=== PATIENT | female | born 2000 | race Two or more races ===

== ENCOUNTER 2021-04-05 18:28 | Observation (INO) | payer MEDICAID ==
[~2021-04-05] VITALS: Ht 162.6 cm; Wt 62.6 kg
[2021-04-05 20:14] LABS: CLARITY URINE CLEAR (CLEAR); COLOR URINE YELLOW (YELLOW); KETONES URINE NEGATIVE (NEGATIVE); LEUKOCYTE ESTERASE URINE NEGATIVE (NEGATIVE); NITRITE URINE NEGATIVE (NEGATIVE); OCCULT BLOOD URINE NEGATIVE (NEGATIVE); PH URINE 6.5 (4.5-8.0); PROTEIN URINE NEGATIVE (NEGATIVE); SPECIFIC GRAVITY URINE 1.006 (1.005-1.030); UROBILINOGEN URINE 0.2 E.U./dL (0.2-1.0)
[2021-04-05] MEDS ORDERED: PNV11TAB5 PO (20:45)
== END 2021-04-05 21:00 | disposition home or self-care (01) ==
LOC: 8 EST LDRP 18:28
PROVIDERS: ADMIT Specialist; ATTEND Specialist
DX: O26.892 Other specified pregnancy related conditions, second trimester (principal); R10.2 Pelvic and perineal pain; Z3A.22 22 weeks gestation of pregnancy
CPT/HCPCS: 59025; 81003; G0378; 99281

== ENCOUNTER 2023-01-05 16:37 | Emergency (ER) | payer MEDICAID, OTHER ==
[~2023-01-05] VITALS: Ht 162.6 cm; Wt 64.5 kg
[~2023-01-05 16:37] MED LIST: PNV11TAB5 PO
[2023-01-05 16:49] VITALS: BP 110/63
[2023-01-05] MEDS ORDERED: ACETAMINOPHEN 325MG TABLET PO PRN (17:00)
[2023-01-05 17:28] LABS: BASOPHILS % 0.2 % (0.0-2.0); EOSINOPHILS % 0.7 % (0.0-5.0); HEMATOCRIT. 33.6 % (36.0-48.0); LYMPHOCYTES % 22.5 % (20.0-50.0); MEAN CORPUSCULAR VOLUME 73.2 fL (81.0-99.0); MEAN PLATELET VOLUME 7.2 fl (7.4-10.4); MONOCYTES % 6.9 % (2.0-8.0); NEUTROPHILS % 69.7 % (40.0-76.0); PLATELET 342 x1000/uL (130-400); RED BLOOD CELL COUNT 4.59 mill/uL (4.2-5.4); RED CELL DISTRIBUTION WIDTH 15.8 % (11.6-14.6)
[2023-01-05 17:40] LABS: CHLORIDE 105 mEq/L (98-107)
[2023-01-05 18:01] LABS: B-HCG QUANTITATIVE 16548 mIU/mL (<3)
[2023-01-05 18:46] LABS: CLARITY URINE CLEAR (CLEAR); COLOR URINE YELLOW (YELLOW); KETONES URINE NEGATIVE (NEGATIVE); LEUKOCYTE ESTERASE URINE TRACE (NEGATIVE); NITRITE URINE NEGATIVE (NEGATIVE); OCCULT BLOOD URINE 3+ (NEGATIVE); PROTEIN URINE NEGATIVE (NEGATIVE); SPECIFIC GRAVITY URINE 1.021 (1.005-1.030); UROBILINOGEN URINE 0.2 E.U./dL (0.2-1.0)
== END 2023-01-05 19:56 | disposition home or self-care (01) ==
LOC: ER 16:37
DX: O03.4 Incomplete spontaneous abortion without complication (principal); Z3A.08 8 weeks gestation of pregnancy; O36.4XX0 Maternal care for intrauterine death, not applicable or unspecified
CPT/HCPCS: 36415; 76801; 80053; 81003; 81025; 84702; 85025; 86850; 86900; 99284

== ENCOUNTER 2023-08-09 09:19 | Emergency (ER) | payer MEDICAID, OTHER ==
[~2023-08-09] VITALS: Ht 162.6 cm; Wt 65.3 kg
[2023-08-09 09:26] VITALS: BP 117/75; O2SAT 99
[2023-08-09 10:50] VITALS: PULSE 82; RESP 12; TEMP 98.2
== END 2023-08-09 10:57 | disposition home or self-care (01) ==
LOC: ER 09:19
DX: R07.89 Other chest pain (principal); F41.9 Anxiety disorder, unspecified
CPT/HCPCS: 71045; 81025; 93005; 99283

== ENCOUNTER 2023-08-18 18:42 | Emergency (ER) | payer OTHER ==
[~2023-08-18] VITALS: Ht 162.6 cm; Wt 67.0 kg
[2023-08-18 18:55] VITALS: BP 106/68; PULSE 94; RESP 16; TEMP 97.9; O2SAT 99
== END 2023-08-18 23:00 | disposition left against medical advice (07) ==
LOC: ER 18:42
DX: Z53.21 Procedure and treatment not carried out due to patient leaving prior to being seen by health care provider (principal)
CPT/HCPCS: 99281

== ENCOUNTER 2023-08-26 13:49 | Emergency (ER) | payer OTHER ==
[~2023-08-26] VITALS: Ht 162.6 cm; Wt 66.7 kg
[2023-08-26 13:58] VITALS: BP 106/65; PULSE 88; RESP 16; TEMP 98.2; O2SAT 100
[2023-08-26] MEDS ORDERED: AMOX1TAB16 MT (14:28)
== END 2023-08-26 15:11 | disposition home or self-care (01) ==
LOC: ER 13:53
DX: H00.014 Hordeolum externum left upper eyelid (principal)
CPT/HCPCS: 99283

== ENCOUNTER 2023-12-11 21:55 | Emergency (ER) | payer MEDICAID, OTHER ==
[~2023-12-11] VITALS: Ht 162.6 cm; Wt 67.0 kg
[~2023-12-11 21:55] MED LIST changes: +AMOX1TAB16 MT
[2023-12-11 22:01] VITALS: O2SAT 100
[2023-12-11] MEDS: SODIUM CHLORIDE 0.9% IV ONE (22:15)
[2023-12-11 22:42] LABS: CLARITY URINE CLEAR (CLEAR); COLOR URINE YELLOW (YELLOW); GLUCOSE URINE NEGATIVE (NEGATIVE); KETONES URINE NEGATIVE (NEGATIVE); LEUKOCYTE ESTERASE URINE 1+ (NEGATIVE); NITRITE URINE NEGATIVE (NEGATIVE); OCCULT BLOOD URINE NEGATIVE (NEGATIVE); PROTEIN URINE NEGATIVE (NEGATIVE); SPECIFIC GRAVITY URINE 1.008 (1.005-1.030); UROBILINOGEN URINE 0.2 E.U./dL (0.2-1.0)
[2023-12-11 22:59] LABS: BACTERIA URINE 1+; RBC URINE 0-2 /hpf (0-2); SQUAMOUS EPITHELIAL CELL URINE 1+ /lpf (RARE/1+)
[2023-12-12 00:51] VITALS: BP 127/86; PULSE 67; RESP 20
[2023-12-12] MEDS ORDERED: CEPH250C2 MT (01:48)
[2023-12-12 02:02] VITALS: TEMP 98.2
[2023-12-12] MEDS: ACETAMINOPHEN 325MG TABLET PO ONE (02:02)
== END 2023-12-12 02:12 | disposition home or self-care (01) ==
LOC: ER 21:55
DX: N39.0 Urinary tract infection, site not specified (principal)
CPT/HCPCS: 81003; 96360; 99283; J7030; Z7610

== ENCOUNTER 2024-10-27 21:17 | Emergency (ER) | payer MEDICAID, OTHER ==
[~2024-10-27] VITALS: Ht 162.6 cm; Wt 82.0 kg
[~2024-10-27 21:17] MED LIST changes: +CEPH250C2 MT
[2024-10-27 21:21] VITALS: O2SAT 99
[2024-10-27 21:52] LABS: BASOPHILS % 0.3 % (0.0-2.0); DIFFERENTIAL COMMENT 0; EOSINOPHILS % 0.9 % (0.0-5.0); HEMOGLOBIN. 12.7 g/dL (12.0-16.0); LYMPHOCYTES % 22.6 % (20.0-50.0); MEAN CORPUSCULAR HEMOGLOBIN 26.1 pg (28.0-32.0); MEAN CORPUSCULAR HGB CONC 33.5 g/dL (31.0-37.0); MEAN CORPUSCULAR VOLUME 77.9 fL (81.0-99.0); MEAN PLATELET VOLUME 7.5 fl (7.4-10.4); NEUTROPHILS % 69.2 % (40.0-76.0); PLATELET 372 x1000/uL (130-400); RED BLOOD CELL COUNT 4.88 mill/uL (4.2-5.4); RED CELL DISTRIBUTION WIDTH 15.6 % (11.6-14.6)
[2024-10-27 22:05] LABS: CHLORIDE 104 mEq/L (98-107); POTASSIUM 4.1 mEq/L (3.5-5.1); SODIUM 140 mEq/L (136-145)
[2024-10-27 22:06] LABS: CALCIUM 9.7 mg/dL (8.7-10.4); CARBON DIOXIDE 29 mEq/L (21-32)
[2024-10-27 22:10] LABS: HCG SCREEN NEGATIVE
[2024-10-27 22:11] LABS: CREATININE 0.9 mg/dL (0.6-1.0); GLUCOSE 95 mg/dL (70-105); UREA NITROGEN BLOOD 11 mg/dL (9-23)
[2024-10-27 22:13] VITALS: BP 130/88; PULSE 98; RESP 20; TEMP 37; O2SAT 99
[2024-10-27 22:19] LABS: TROPONIN I HIGH SENSITIVITY < 4 ng/L (3.0-34)
== END 2024-10-28 01:00 | disposition home or self-care (01) ==
LOC: ER 21:17
DX: R53.1 Weakness (principal); F41.9 Anxiety disorder, unspecified
CPT/HCPCS: 36415; 71045; 80048; 84484; 84703; 85025; 93005; 99285

== ENCOUNTER 2024-12-14 23:13 | Emergency (ER) | payer MEDICAID, OTHER ==
[~2024-12-14] VITALS: Ht 167.6 cm; Wt 55.0 kg
[2024-12-14 23:21] VITALS: O2SAT 100
[2024-12-14 23:40] VITALS: TEMP 37.2
[2024-12-15 02:37] LABS: CLARITY URINE CLOUDY (CLEAR); COLOR URINE YELLOW (YELLOW); GLUCOSE URINE NEGATIVE (NEGATIVE); KETONES URINE 2+ (NEGATIVE); LEUKOCYTE ESTERASE URINE 1+ (NEGATIVE); NITRITE URINE NEGATIVE (NEGATIVE); OCCULT BLOOD URINE NEGATIVE (NEGATIVE); PROTEIN URINE TRACE (NEGATIVE); SPECIFIC GRAVITY URINE 1.018 (1.005-1.030)
[2024-12-15] MEDS: RACEPINEPHRINE 2.25% 0.5ML NEB VIAL HHN ONE (02:39)
[2024-12-15 02:42] VITALS: PULSE 104; RESP 15; O2SAT 99
[2024-12-15 02:55] VITALS: BP 116/69; PULSE 105; RESP 16
[2024-12-15] MEDS: KETOROLAC 30MG/ML VIAL IM ONE (02:55)
[2024-12-15] MEDS: ONDANSETRON 4MG ODT PO ONE (02:56)
[2024-12-15] MEDS ORDERED: ONDA-239 PO (03:46)
[2024-12-15] MEDS ORDERED: NITR100C MT (03:46)
[2024-12-15 04:46] LABS: SQUAMOUS EPITHELIAL CELL URINE 1+ /lpf (RARE/1+)
[2024-12-15 04:47] LABS: BACTERIA URINE 1+; RBC URINE 0-2 /hpf (0-2)
== END 2024-12-15 04:01 | disposition home or self-care (01) ==
LOC: ER 23:13
DX: R11.2 Nausea with vomiting, unspecified (principal); R42 Dizziness and giddiness; N39.0 Urinary tract infection, site not specified; T37.0X5A Adverse effect of sulfonamides, initial encounter; F41.9 Anxiety disorder, unspecified; Z79.899 Other long term (current) drug therapy; Y92.89 Other specified places as the place of occurrence of the external cause
CPT/HCPCS: 99283; 81003; 94640; 96372; Q0162; J1885; Z7610 ×2

== ENCOUNTER 2025-03-17 22:51 | Emergency (ER) | payer MEDICAID ==
[~2025-03-17] VITALS: Ht 162.6 cm; Wt 78.2 kg
[~2025-03-17 22:51] MED LIST changes: +NITR100C MT; +ONDA-239 PO
[2025-03-17 22:59] VITALS: TEMP 37; O2SAT 100
[2025-03-17 23:52] LABS: BASOPHILS % 0.4 % (0.0-2.0); EOSINOPHILS % 1.0 % (0.0-5.0); HEMATOCRIT. 37.4 % (36.0-48.0); HEMOGLOBIN. 12.3 g/dL (12.0-16.0); LYMPHOCYTES % 22.3 % (20.0-50.0); MEAN PLATELET VOLUME 7.4 fl (7.4-10.4); MONOCYTES % 7.5 % (2.0-8.0); NEUTROPHILS % 68.8 % (40.0-76.0); PLATELET 342 x1000/uL (130-400); RED BLOOD CELL COUNT 4.80 mill/uL (4.2-5.4); RED CELL DISTRIBUTION WIDTH 15.3 % (11.6-14.6)
[2025-03-18 00:11] LABS: CREATININE 1.1 mg/dL (0.6-1.0); TROPONIN I HIGH SENSITIVITY < 4 ng/L (3.0-34); UREA NITROGEN BLOOD 16 mg/dL (9-23)
[2025-03-18 03:42] VITALS: BP 127/70; PULSE 75; RESP 18; O2SAT 100
== END 2025-03-18 03:45 | disposition home or self-care (01) ==
LOC: ER 22:51
DX: R07.89 Other chest pain (principal); R06.02 Shortness of breath; R25.1 Tremor, unspecified; Z79.899 Other long term (current) drug therapy
CPT/HCPCS: 36415; 71045; 80048; 84484; 85025; 93005; 99285